=== PATIENT | female | born 1955 | race African-American/Black ===

== ENCOUNTER 2025-05-08 14:27 | Outpatient (CLI) | payer OTHER, SELFPAY ==
[2025-05-08 15:07] LABS: Hematocrit 29.6 % (37.0-47.0); Hemoglobin 9.2 g/dL (12.0-15.0); Immature Granulocyte Percent A 0.4 % (0-0.5); Lymphocytes Absolute Auto 2.68 K/mm3 (0.9-3.2); Mean Corpuscular HGB Conc 31.1 g/dl (32-36); Mean Corpuscular Hemoglobin 26.7 pg (26-34); Mean Corpuscular Volume 85.8 fl (80-100); Nucleated Red Blood Cells Absolute Auto 0.000 K/mm3 (0.0-0.012); Nucleated Red Blood Cells Perc 0.0 % (0.0-0.2); Platelet Count Result 438 k/mm3 (150-375); Red Blood Count 3.45 M/mm3 (4.2-5.4); White Blood Count 12.4 K/mm3 (4.5-10.0)
[2025-05-08 15:16] LABS: Alanine Aminotransferase 30 U/L (6-35); Albumin Level 3.4 g/dL (3.5-5.1); Alkaline Phosphatase 127 U/L (38-126); Anion Gap 6 mmol/L (4-12); Aspartate Amino Transferase 36 U/L (14-36); Bilirubin,Total 0.4 mg/dL (0.2-1.3); Blood Urea Nitrogen 5 mg/dL (7-17); Calcium 8.6 mg/dL (8.4-10.2); Carbon Dioxide 25 mmol/L (22-30); Chloride 103 mmol/L (98-107); Estimated Glomerular Filt Rate > 60; Glucose 147 mg/dL (65-110); Potassium 4.5 mmol/L (3.4-5.0); Sodium 134 mmol/L (137-145); Total Protein 6.6 g/dL (6.3-8.2)
[2025-05-09 07:09] LABS: CA 19-9 34 U/mL (0-35)
== END 2025-05-08 14:28 | disposition home or self-care (01) ==
LOC: ANHLAB 14:40
PROVIDERS: Visit Provider Internal Medicine Hematology & Oncology
DX: C25.9 Malignant neoplasm of pancreas, unspecified (principal)
CPT/HCPCS: 36415; 80053; 85025; 86301

== ENCOUNTER 2025-05-22 11:06 | Outpatient (CLI) | payer MEDICARE, OTHER, SELFPAY ==
[2025-05-22 12:27] LABS: Iron 51 ug/dL (37-170)
[2025-05-22 12:45] LABS: Percent Iron Saturation 25 % (20-50)
[2025-05-22 13:11] LABS: Ferritin 340.00 ng/mL (11.1-264)
[2025-05-22 13:15] LABS: Vitamin B12 916.0 pg/mL (239-931)
== END 2025-05-22 11:07 | disposition home or self-care (01) ==
LOC: ANHLAB 11:08
PROVIDERS: Visit Provider Internal Medicine Hematology & Oncology
DX: D64.9 Anemia, unspecified (principal)
CPT/HCPCS: 36415; 82607; 82728; 82746; 83540; 83550; 83921; 84238

== ENCOUNTER 2025-07-07 08:35 | Outpatient (CLI) | payer MEDICARE, OTHER, SELFPAY ==
--- NOTE | ~2025-07-07 | CT_ITS ---
EXAMINATION: CT chest abdomen pelvis w con DATE: 07/07/2025 09:07 INDICATION: Malignant neoplasm of pancreas. TECHNIQUE: Computed tomography (CT) of the chest, abdomen, and pelvis was performed with 100 mL Omnipaque 350 intravenous contrast. Automated exposure control and iterative reconstruction technique were employed. The dose-length product was 814.78 mGy-cm. COMPARISON: None FINDINGS: CHEST CT: There is mild emphysema. There is mild atelectasis in the lungs bilaterally. There is shrapnel in right lung and right chest wall. No pleural effusion. The heart size is normal. There are coronary artery calcifications. No pericardial effusion. There is mediastinal and bilateral hilar lymphadenopathy. For example, a subcarinal node measures 1.6 x 1.8 cm. There is a right internal jugular port with tip in right atrium. There is mild thoracic spondylosis. ABDOMEN/PELVIS CT: There is diffuse hepatic steatosis. There is mild intrahepatic biliary duct dilatation. There is a stent in the common duct extending into the duodenum. The gallbladder is normal in size. Gallbladder wall thickening is noted. There is an ill-defined mass involving the head of the pancreas measuring approximately 5.5 cm. The pancreatic duct is dilated. There is a 7 mm hypodense mass in the spleen, probably benign. The adrenal glands and right kidney are normal. There are cysts in left kidney measuring up to 1.6 cm. There is diverticulosis of the colon without evidence of diverticulitis. The appendix is normal. There are no dilated loops of bowel. There are no pathologically enlarged lymph nodes. There is no free intraperitoneal fluid. An intrathecal catheter is noted. There is moderate lumbar spondylosis. IMPRESSION: 1. Ill-defined mass in the head of the pancreas measuring approximately 5.5 cm, consistent with primary malignancy. 2. Mediastinal and bilateral hilar lymphadenopathy, consistent with metastatic disease. 3. Mild intrahepatic biliary duct dilatation with stent in the common duct. Reviewed, dictated and finalized at location E. DIPPER
--- OUTSIDE RECORDS SUMMARY | 2025-07-07 08:44 | XMS_ITS | Clinical Summary ---
Author Organization [facility] Address [address] [place] [address] Care Team Providers Care Kennel Technician Name Role Phone Monica James DO Primary Care Provider [phone] Allergies No known active allergies Medications amLODIPine (NORVASC) 10 MG tablet Take 1 tablet (10 mg total) by mouth daily. Active metFORMIN (GLUCOPHAGE) 500 MG tablet Take 1 tablet (500 mg total) by mouth 2 (two) times daily with meals. Active morphine CR (MS CONTIN) 15 MG tablet Take 1 tablet (15 mg total) by mouth every 12 (twelve) hours. Active oxyCODONE-acet aminophen (PERCOCET) 5-325 MG tablet Take 1 tablet by mouth as needed for Pain (once daily as needed for breakthrough pain). Active diclofenac sodium (VOLTAREN) 1 % gelIndications :Neuropathy Apply 4 g topically 4 (four) times daily. 350 g 1 5 Active pregabalin (LYRICA) 100 MG capsuleIndicat ions:Neuropath y Take 1 capsule (100 mg total) by mouth 2 (two) times daily. 180 capsule 2 5 Active pregabalin (LYRICA) 50 MG capsuleIndicat ions:Neuropath y Take 1 capsule (50 mg total) by mouth 2 (two) times daily. 60 capsule 2 5 025 Discontin ued(Thera py completed ) Encounters Date Type Department Care Team Description 06/25/2025 2:40 PM CAT SWAMPER Office Visit [facility] Family & Internal Medicine [address] [address] Monica Jmaes, DO Follow Up (Patient is here today to discuss possibly getting a motorized scooter.) 06/25/2025 Scan HEALTH INFO SRVCS Scanned, Doc Med Group 06/25/2025 Travel 05/29/2025 Telephone [facility] Family & Internal [address] [address] Monica James, DO Pain (Neuropathic pain ) 05/08/2025 1:40 PM CDT Laboratory Only [facility] Internal [address] [address] Monica James, 05/08/2025 Travel 04/29/2025 3:00 PM CDT Office Visit [facility] Family & Internal [address] [address] Monica James, DO Establish Care (Patient is here today to meet and greet provider, and establish care. Patient has no concerns today.) 04/29/2025 Travel from Last 3 Months Social History Tobacco Use Types Packs/Day Years Used Date Smoking Tobacco: Former Cigarettes Smokeless Tobacco: Never Tobacco Cessation:Counseling Given: No Alcohol Use Standard Drinks/Week Comments Not Currently 0 (1 standard drink = 0.6 oz pur e alcohol) PHQ-2 Answer Date Recorded Patient Health Questionnaire-2 Score 1 04/29/2025 Comments No Sex and Gender Information Value Date Recorded Sex Assigned at Female 04/27/2025 3:36 PM CDT Legal Sex Female 8:23 PM CDT Gender Identity Not on file Sexual Orientation Not on file Last Filed Vital Signs Vital Sign Reading Time Taken Comments Blood Pressure 118/76 06/25/2025 2:51 PM CAT SWAMPER Pulse 112 06/25/2025 2:51 PM CAT SWAMPER Temperature 36.5 C (97.7 F) 06/25/2025 2:51 PM CAT SWAMPER Respiratory Rate - - Oxygen Saturation 98% 06/25/2025 2:51 PM CAT SWAMPER Inhaled Oxygen Concentration - - Weight 82.7 kg (182 lb 6.4 oz) 06/25/2025 2:51 P M CAT SWAMPER Height 172.7 cm (5' 8) 06/25/2025 2:51 PM CAT SWAMPER Body Mass Index 27.73 06/25/2025 2:51 PM CAT SWAMPER Plan of Treatment Health Maintenance Due Date Last Done Comments Colorectal Cancer Screening Colonoscopy (10 Years) 1957 Kidney Health Evaluation 1957 Lipid Panel 1957 Diabetes: Retinopathy Eye Exam 11/05/1975 Hepatitis C 11/05/1975 DTaP, Tdap and Td Vaccines ( 1 - Tdap) 1976 Pneumococcal Vaccine: 50+ Ye ars (1 of 2 - PCV) 1976 Mammogram Screening 1997 Zoster Vaccines (1 of 2) 11/05/2007 Annual Medicare Wellness Visit 2022 Dexa Scan (General) 2022 COVID-19 Vaccine (1 - 2024-2 6 season) 2025 Influenza Adult (#1) 2025 Hemoglobin A1C 11/06/2025 05/08/2025 RSV Immunization or 60+ Years (1 - 1-dose 75+ series) 2032 PHQ-2 (Physician [place]) Completed 04/29/2025 Hepatitis A Vaccines Aged Out No long er eligible based on patient's age to complete this topic Meningococcal B Vaccine Aged Out No l onger eligible based on patient's age to complete this topic Meningococcal Vaccine Aged Out No leonie morris eligible based on patient's age to complete this topic RSV Immunizations Under 20 Months Aged Out No longer eligible based on patient's age to complete this topic Procedures Procedure Name Priority Date/Time Associated Diagnosis Comments COLLECTION VENOUS BLOOD VENIPUNCTURE Routine 05/08/2025 1:59 PM CDT Type 2 diabetes mellitus without complication, without long-term current use of insulin ([facility]) Primary hypertension COMPREHENSIVE METABOLIC PANEL Routine 05/08/2025 1:59 PM CDT Primary hypertension CBC W/DIFF AUTOMATED Routine 05/08/2025 1:59 PM CDT Primary hypertension TSH W/REFLEX Routine 05/08/2025 1:59 PM CDT Primary hypertension HEMOGLOBIN, GLYCOSYLATED Routine 05/08/2025 1:59 PM CDT Type 2 diabetes mellitus without complication, without long-term current use of insulin ([facility] HHS/HCC) from Last 3 Months Results * TSH W/REFLEX (05/08/2025 1:59 PM CDT) TSH 1.409 0.358 - 3.740 uIU/ML 05/09/2025 9:38 AM CDT [facility] 05/08/2025 1:59 PM CDT Monica James DO LABORATORY Final Result Performing Organization Address [facility]/ZIP Co de Phone Number [facility] [address] [place] [address], [place] [phone] * (ABNORMAL) HEMOGLOBIN, GLYCOSYLATED (05/08/2025 1:59 PM CDT) HGB A1C 7.1(H) 4.5 - 6.2 % 05/09/2025 9:34 AM CDT [facility] ESTIMATED AVG GLUCOSE 157(H) 74 - 106 MG/DL 05/09/2025 9:34 AM CDT [facility] 05/08/2025 1:59 PM CDT Monica James DO LABORATORY Final Result Performing Organization Address City/[facility]/ZIP Co de Phone Number [facility] [address] [place] [address], [place] [phone] * (ABNORMAL) COMPREHENSIVE METABOLIC PANEL (05/08/2025 1:59 PM CDT) SODIUM S/P/B 137 136 - 145 MMOL/L 05/09/2025 9:38 AM CDT [facility] POTASSIUM S/P/B 4.6 3.5 - 5.1 MMOL/L 05/09/2025 9:38 AM CDT [facility] CHLORIDE S/P/B 103 98 - 107 MMOL/L 05/09/2025 9:38 AM T [facility] CO2 22.0 21 - 32 MMOL/L 05/09/2025 9:39 AM T [facility] Comment:RESULT CHECKED GLUCOSE 132(H) 70 - 99 MG/DL 05/09/2025 9:38 AM T [facility] BUN 5(L) 7 - 18 MG/DL 05/09/2025 10:21 AM CDT [facility] Comment:RESULT CHECKED CREATININE S/P/B 0.53(L) 0.55 - 1.02 MG/DL 05/09/2025 9:38 AM T [facility] CALCIUM S/P/B 8.5 8.4 - 10.5 MG/DL 05/09/2025 9:38 AM T [facility] BILIRUBIN TOTAL S/P/B 0.4 0.2 - 1.0 MG/DL 05/09/2025 9:38 AM T [facility] ALKALINE PHOSPHATASE S/P/B 129 55 - 142 U/L 05/09/2025 9:38 AM T [facility] AST 29 15 - 37 U/L 05/09/2025 9:38 AM T [facility] ALT 32 14 - 59 U/L 05/09/2025 9:38 AM T [facility] TOTAL PROTEIN S/P/B 6.3(L) 6.4 - 8.2 G/DL 05/09/2025 9:38 AM T [facility] ALBUMIN S/P/B 3.0(L) 3.4 - 5.0 G/DL 05/09/2025 10:21 AM CDT [facility] Comment:RESULT CHECKED ANION GAP 12.0 5 - 15 MMOL/L 05/09/2025 9:39 AM T [facility] Comment:REFERENCE RANGE NOT ESTABLISHED OSMOLALITY (CALC) 283 MOSM/KG 025 10:21 AM CDT [facility] Comment:REFERENCE RANGE NOT ESTABLISHED GFR ESTIMATE >90 >90 ML/MIN/1. 73 M2 05/09/2025 9:38 AM CDT [facility] GFR NOTES GFR REFERENCE S: 05/09/2025 9:38 AM CDT [facility] Comment: THE ESTIMATED GFR IS CALCULATED USING THE 2020 CKD-EPI EQUATION. THE FOLLOWING CATEGORIES FOR GRADING RENAL FUNCTION ARE RECOMMENDED BY THE INTERNATIONAL SOCIETY OF NEPHROLOGY (KDIGO 2012 CLINICAL PRACTICE GUIDELINE). G1,NORMAL OR HIGH: >89 ml/min/1.73 m2 G2,MILDLY DECREASED: 60-89 ml/min/1.73 m2 G3A,MILDLY TO MODERATELY DECREASED: 45-59 ml/min/1.73 m2 G3B,MODERATELY TO SEVERELY DECREASED: 30-44 ml/min/1.73 m2 G4,SEVERELY DECREASED: 15-29 ml/min/1.73 m2 G5,KIDNEY FAILURE: <15 ml/min/1.73 m2 05/08/2025 1:59 PM CDT us Monica James DO LABORATORY Final Result [facility] [address] [place] [address], * (ABNORMAL) CBC W/DIFF AUTOMATED (05/08/2025 1:59 PM CDT) WBC 11.30(H) 4.00 - 10.80 x10'3/uL 05/08/2025 7:36 PM CDT [facility] RBC 3.40(L) 4.10 - 5.40 x10'6/uL 05/08/2025 7:36 PM CDT [facility] HGB 9.3(L) 12.0 - 16.0 G/DL 05/08/2025 7:36 PM CDT [facility] HCT 29.5(L) 36.0 - 47.0 % 05/08/2025 7:36 PM CDT [facility] MCV 86.8 78.0 - 100.0 FL 05/08/2025 7:36 PM CDT [facility] MCH 27.4 27.0 - 31.0 PG 05/08/2025 7:36 PM CDT [facility] MCHC 31.5(L) 33.0 - 36.0 G/DL 05/08/2025 7:36 PM CDT [facility] RDW 20.0(H) 11.5 - 14.5 % 05/08/2025 7:36 PM CDT [facility] PLT 497(H) 150 - 350 x10'3/uL 05/08/2025 7:36 PM T [facility] MPV 9.8 7.4 - 10.4 FL 05/08/2025 7:36 PM CDT [facility] DIFFERENTIAL TYPE AUTOMATED DIFFERENTIAL 05/08/2025 7:36 PM CDT [facility] NEUTROPHILS % 63.3 % 05/08/2025 7:36 PM CDT [facility] LYMPHOCYTES % 25.4 % 05/08/2025 7:36 PM CDT [facility] MONOCYTES % 9.1 % 05/08/2025 7:36 PM CDT [facility] EOSINOPHILS % 1.6 % 05/08/2025 7:36 PM CDT [facility] BASOPHILS % 0.5 % 05/08/2025 7:36 PM CDT [facility] IMMATURE GRANS % 0.1 % 05/08/2025 7:36 PM CDT [facility] ABS. NEUTROPHILS 7.15 1.60 - 8.30 x10'3/uL 05/08/2025 7:36 PM CDT [facility] ABS. LYMPHOCYTES 2.87 0.80 - 4.70 x10'3/uL 05/08/2025 7:36 PM CDT [facility] ABS. MONOCYTES 1.03 0.00 - 1.50 x10'3/uL 05/08/2025 7:36 PM CDT [facility] ABS. EOSINOPHILS 0.18 0.00 - 0.40 x10'3/uL 05/08/2025 7:36 PM CDT [facility] ABS. BASOPHILS 0.06 0.00 - 0.20 x10'3/uL 05/08/2025 7:36 PM CDT [facility] ABS. IMMATURE GRANULOCYTES 0.01 0.00 - 0.03 x10'3/uL 05/08/2025 7:36 PM CDT [facility] 05/08/2025 1:59 PM CDT Monica James DO LABORATORY Final Result [facility] [address] [place] [address], from Last 3 Months Insurance [facility] UHC MEDICARE Care Teams Kennel Technician Relationship Specialty Start Date End Date Monica James DO [address] [place] [id number] PCP - General FAMILY PRACTICE 04/29/25
--- OUTSIDE RECORDS SUMMARY | 2025-07-07 08:44 | XMS_ITS | Clinical Summary ---
Author Organization [facility] Address [address] Lee: Epic Prelude ADT CHARO HERNANDEZ [address] Care Team Providers Care Dog Groomer Name Role Phone Unavailable Primary Care Provider Unavailabl e Allergies No known active allergies Medications amLODIPine (NORVASC) 10 mg tablet Take 10 mg by mouth daily. Active LISINOPRIL ORAL Take by mouth. Active ONDANSETRON ORAL Take by mouth. Activ e prochlorperazin e maleate (COMPAZINE) 5 mg tablet Take 5 mg by mouth every 6 hours as needed for Nausea/Emesis. Active POTASSIUM CHLORIDE ORAL Take by mouth. A ctive naloxone (NARCAN) 4 mg/spray [place], Non-Aerosol EMERGENCY USE ONLY: Administer 1 spray (4 mg) in one nostril one time. May repeat in alternating nostrils every 2-3 min until responsive or EMS arrives. 2 Each 3 05/22/20 25 Active oxyCODONE (ROXICODONE) 5 mg tabletIndicatio ns:Malignant neoplasm of pancreas, unspecified location of malignancy (CMS/HCC) Take 1 Tablet (5 mg) by mouth every 8 hours as needed for Pain. Max Daily Amount: 15 mg 60 Tablet 06/23/20 25 Active morphine (MS CONTIN) 15 mg Controlled Release tabletIndicatio ns:Malignant neoplasm of pancreas, unspecified location of malignancy (CMS/HCC) Take 1 Tablet (15 mg) by mouth every 12 hours. Max Daily Amount: 30 mg 60 Tablet 06/23/20 25 025 Active morphine (MS CONTIN) 15 mg Controlled Release tabletIndicatio ns:Malignant neoplasm of pancreas, unspecified location of malignancy (CMS/HCC) Take 1 Tablet (15 mg) by mouth every 12 hours. Max Daily Amount: 30 mg 60 Tablet 05/22/20 25 025 oxyCODONE (ROXICODONE) 5 mg tabletIndicatio ns:Malignant neoplasm of pancreas, unspecified location of malignancy (CMS/HCC) Take 1 Tablet (5 mg) by mouth every 8 hours as needed for Pain. Max Daily Amount: 15 mg 60 Tablet 05/22/20 25 025 Discontinu ed(Reorder ) Active Problems Problem Noted Date Diagnosed Date Chronic pain 08/05/2014 Encounters Date Type Department Care Team Description 06/23/2025 External Device Data STL ABSTRACTION Provider, Abstract 06/23/2025 Refill [facility]3] Oncology and Hematology [facility] [address] [place] [address] Fidelina Gibbs MD Malignant neoplasm of pancreas, unspecified location of malignancy (CMS/HCC) 06/10/2025 4:35 PM FINANCE MGR Telephone Check Up [facility]3] Oncology and Hematology [facility] [address] [place] [address] Francis Sheehan MD Malignant neoplasm of pancreas, unspecified location of malignancy (CMS/HCC) (Primary Dx); Chronic anemia 06/03/2025 External Device Data STL ABSTRACTION Provider, Abstract 06/02/2025 External Device Data STL ABSTRACTION Provider, Abstract 06/02/2025 Orders Only [facility]3] Oncology and Hematology [facility] [address] [place] [address] Francis Sheehan MD 05/27/2025 External Device Data STL ABSTRACTION Provider, Abstract 05/27/2025 Orders Only [facility]3] Oncology and Hematology - [facility] [address] [place] [address] Francis Sheehan MD 05/26/2025 External Device Data STL ABSTRACTION Provider, Abstract 05/26/2025 Orders Only [facility]3] Oncology and Hematology - [facility] [address] [place] [address] Francis Sheehan MD 05/22/2025 11:00 AM CDT Office Visit [facility]3] Oncology [facility] Hematology [facility] [address] [place] [address] Francis Sheehan MD Chronic anemia (Primary Dx); Malignant neoplasm of pancreas, unspecified location of malignancy (CMS/HCC) 05/18/2025 Orders Only [facility]3] Oncology [facility] [address] [place] [address] Francis Sheehan MD 05/05/2025 External Device Data STL ABSTRACTION Provider, Abstract 05/05/2025 External Device Data STL ABSTRACTION Provider, Abstract 05/05/2025 External Device Data STL ABSTRACTION Provider, Abstract 05/04/2025 Telephone [facility]3] Oncology [facility] [address] [place] [address] Francis Sheehan MD labs for appt 04/28/2025 4:00 PM CDT Office Visit [facility]3] Oncology [facility] [address] [place] [address] Francis Sheehan MD Malignant neoplasm of pancreas, unspecified location of malignancy (CMS/HCC) (Primary Dx) from Last 3 Months Family History Medical History Relation Name Comments No Known Problems Brother 1 No Known Problems Brother 2 Healthy Daughter 1 Healthy Daughter 2 Heart Disease Father Hypertension Mother Other Mother No Known Problems Sister 1 No Known Problems Sister 2 Healthy Son 1 Healthy Son 2 Healthy Son 3 Relation Name Status Comments Brother 1 Alive Brother 2 Alive Daughter 1 Alive Daughter 2 Alive Father Mother Alive Sister 1 Alive Sister 2 Son 1 Alive Son 2 Alive Son 3 Alive Social History Tobacco Use Types Packs/Day Years Used Date Smoking Tobacco: Former Cigarettes 0.5 60 0 10/04/1964 - 10/04/2024 Smokeless Tobacco: Never Alcohol Use Standard Drinks/Week Comments No 0 (1 standard drink = 0.6 oz pur e alcohol) Comments Unknown Sex and Gender Information Value Date Recorded Sex Assigned at Not on file Legal Sex Female 1:28 PM FINANCE MGR Gender Identity Not on file Sexual Orientation Not on file Last Filed Vital Signs Vital Sign Reading Time Taken Comments Blood Pressure 140/94 05/22/2025 10:53 AM CDT Pulse 131 05/22/2025 10:51 AM CDT Temperature 36.1 C (96.9 F) 05/22/2025 10:51 AM CDT Respiratory Rate 16 05/22/2025 10:51 AM CDT Oxygen Saturation 98% 05/22/2025 10:51 AM CDT Inhaled Oxygen Concentration - - Weight 85.5 kg (188 lb 9.6 oz) 05/22/2025 10:51 AM CDT Height 172.7 cm (5' 8) 04/28/2025 4:01 PM CDT Body Mass Index 28.68 04/28/2025 4:01 PM CDT Plan of Treatment Upcoming Encounters Date Type Department Care Team (Late st Contact Info) Description 07/13/2025 1:00 PM FINANCE MGR Office Visit [facility]3] Oncology and Hematology [facility] [address] [facility] [address] [place] [address] Francis Sheehan MD [address] [place] [address] Health Maintenance Due Date Last Done Comments DIABETES ANNUAL FOOT EXAM 11/05/1975 DIABETES ANNUAL RETINAL EXAM 11/05/1975 DIABETES MICROALBUMIN ANNUAL SCREEN 11/05/1975 LDL CHOLESTEROL ANNUAL 11/05/1975 PNEUMOCOCCAL VACCINE 50+ YEA RS (1 of 2 - PCV) 1976 BREAST CANCER SCREENING 1997 COLORECTAL SCREENING 2002 Colorectal Cancer Screening 2002 FIT-DNA Q 3 years 2002 FIT/FOBT Q 1 year 2002 Flex Sig/CT Colonography Q 5 years 2002 Lung Cancer Screening 11/05/2007 ZOSTER VACCINE (1 of 2) 11/05/2007 OSTEOPOROSIS SCREENING 2022 INFLUENZA VACCINE (#1) 2025 , 05/16/2023, 05/08/2013 COVID-19 Vaccine ( season) 04/06/202504/2024 DIABETES HBA1C Q 6 MONTHS 11/06/2025 05/08/2025, 05/2025 RSV VACCINE (60+ or ) (1 - 1-dose 75+ series) 2032 DTAP/TDAP/TD VACCINES (2 - T d or Tdap) 07/14/2034 07/14/2024 Procedures Procedure Name Priority Date/Time Associated Diagnosis Comments IRON, TIBC, AND PERCENT SATURATION Routine 05/22/2025 12:38 PM CDT METHYLMALONIC ACID Routine 05/22/2025 12 :12 PM CDT CHG SOLUBLE TRANSFERRIN RECEPTOR Routine 05/22/2025 9:53 AM CDT CHG CA 19 9 Routine 05/08/2025 12:46 PM CDT COMPREHENSIVE METABOLIC PANEL Routine 05/08/2025 11:52 AM CDT from Last 3 Months Results * IRON, TIBC, AND PERCENT SATURATION (05/22/2025 12:38 PM CDT) Blood us Francis Sheehan MD CHEMISTRY ORDERABLES Final Resu lt * METHYLMALONIC ACID (05/22/2025 12:12 PM CDT) Blood us Fracnis Sheehan MD CHEMISTRY ORDERABLES Final Resu lt * CHG SOLUBLE TRANSFERRIN RECEPTOR (05/22/2025 9:53 AM CDT) us Francis Sheehan MD CHG - LABORATORY Final Result * CHG CA 19 9 (05/08/2025 12:46 PM CDT) us Francis Sheehan MD CHG - LABORATORY Final Result * COMPREHENSIVE METABOLIC PANEL (05/08/2025 11:52 AM CDT) Blood us Francis Sheehan MD CHEMISTRY ORDERABLES Final Resu lt from Last 3 Months Insurance [facility] [id number] FOR LIFE
[2025-07-07 09:01] LABS: Estimated Glomerular Filt Rate > 60
== END 2025-07-07 08:36 | disposition home or self-care (01) ==
PROVIDERS: Visit Provider Internal Medicine Hematology & Oncology
DX: C25.9 Malignant neoplasm of pancreas, unspecified (principal)
CPT/HCPCS: 71260; 74177; Q9967